=== PATIENT | female | born 1945 | race Caucasian/White ===

== ENCOUNTER 2019-04-12 10:03 | Emergency (ER) | payer MEDICARE, BC ==
[2019-04-12 11:52] LABS: ABSOLUTE BASOPHILS # (AUTO) 0.1 10^3/uL (0.0-0.2); ABSOLUTE EOSINOPHILS # (AUTO) 0.1 10^3/uL (0.0-0.6); ABSOLUTE LYMPHOCYTES (AUTO) 3.2 10^3/uL (0.5-4.7); ABSOLUTE MONOCYTES (AUTO) 0.7 10^3/uL (0.1-1.4); ABSOLUTE NEUT (AUTO) 4.2 10^3/uL (1.7-8.2); BASOPHILS % (AUTO) 1.1 % (0-2); EOSINOPHILS % (AUTO) 0.9 % (0-6); HEMATOCRIT 42.6 % (36.0-47.0); HEMOGLOBIN 13.7 g/dL (12.0-15.5); LYMPHOCYTES % (AUTO) 38.4 % (13-45); MEAN CORPUSCULAR HEMOGLOBIN 25.2 pg (27.0-33.4); MEAN CORPUSCULAR HGB CONC 32.1 g/dL (32.0-36.0); MEAN CORPUSCULAR VOLUME 79 fl (80-97); MONOCYTES % (AUTO) 8.3 % (3-13); PLATELET COUNT 300 10^3/uL (150-450); RED BLOOD COUNT 5.42 10^6/uL (3.72-5.28); RED CELL DISTRIBUTION WIDTH 17.3 % (11.5-14.0); SEGMENTED NEUTROPHILS % (AUTO) 51.3 % (42-78); TOTAL CELLS COUNTED % (AUTO) 100 %; WHITE BLOOD COUNT 8.3 10^3/uL (4.0-10.5)
[2019-04-12 11:53] LABS: APPEARANCE,URINE CLEAR; BILIRUBIN,URINE NEGATIVE (NEGATIVE); COLOR,URINE YELLOW; GLUCOSE, URINE NEGATIVE (NEGATIVE); KETONES,URINE NEGATIVE (NEGATIVE); LEUKOCYTE ESTERASE,URINE NEGATIVE (NEGATIVE); NITRITE,URINE NEGATIVE (NEGATIVE); PROTEIN,URINE NEGATIVE (NEGATIVE); URINE SPECIFIC GRAVITY 1.009; UROBILINOGEN,URINE NEGATIVE mg/dL (<2.0)
[2019-04-12 12:12] LABS: ALBUMIN 4.6 g/dL (3.5-5.0); ALKALINE PHOSPHATASE 79 U/L (38-126); ANION GAP 9 (5-19); ASPARTATE AMINO TRANSFERASE 28 U/L (14-36); BILIRUBIN,DIRECT 0.1 mg/dL (0.0-0.4); BILIRUBIN,TOTAL 0.4 mg/dL (0.2-1.3); BLOOD UREA NITROGEN 12 mg/dL (7-20); CALCIUM 9.6 mg/dL (8.4-10.2); CARBON DIOXIDE 25 mmol/L (22-30); CHLORIDE 105 mmol/L (98-107); GLUCOSE 94 mg/dL (75-110); POTASSIUM 4.4 mmol/L (3.6-5.0); TOTAL PROTEIN 7.9 g/dL (6.3-8.2)
[2019-04-12] MEDS ORDERED: NORMAL SALINE 1000 ML 1,000 ML IV ONE (12:14)
[2019-04-12] MEDS ORDERED: ONDANSETRON HCL INJ/PF 4 MG/2 ML SDV IV ONE (12:14)
--- NOTE | 2019-04-12 12:19 | ER Document Report ---
ED GI/ - General Chief Complaint: Epigastric Pain Stated Complaint: NAUSEA Time Seen by Provider: 04/12/19 12:04 Primary Care Provider: DIXIE FINK MD [ACTIVE STAFF] - Follow up in 3-5 days Notes: Patient is a 73-year-old female who presents the emergency department with a chief complaint of epigastric pain. Patient states that is not really actually pain, but more nausea. She has had nausea and vomiting for the past 2 weeks. The last time she vomited was this morning. She states that it will come and go. Patient also admits to poor appetite. Patient states her last bowel movement was yesterday but states that it was only a small amount. TRAVEL OUTSIDE OF THE [place] IN LAST 30 DAYS: No - Related Data Allergies/Adverse Reactions: No Known Allergies Allergy (Unverified 04/12/19 10:45) Home Medications: EFFEXOR, CARDIA, OMEPRAZOLE, CRESTOR, SPIRIVA, SYMBICORT Past Medical History - Social History Smoking Status: Former Smoker Chew tobacco use (# tins/day): No Frequency of alcohol use: Rare Drug Abuse: None Family History: Reviewed & Not Pertinent Patient has suicidal ideation: No Patient has homicidal ideation: No - Past Medical History Cardiac Medical History: Reports: Hx Hypercholesterolemia, Hx Hypertension Pulmonary Medical History: Reports: Hx COPD GI Medical History: Reports: Hx Gastroesophageal Reflux Disease Past Surgical History: Reports: Hx Abdominal Surgery - low abd @16, hernia, Hx Appendectomy Review of Systems - Review of Systems Notes: REVIEW OF SYSTEMS: CONSTITUTIONAL : Denies recent illness. Denies recent unintentional weight loss. Denies fever, chills, or sweats. EENT: Denies eye, ear, throat, or mouth pain, discharge, or symptoms. Denies nasal or sinus congestion. CARDIOVASCULAR: Denies chest pain. RESPIRATORY: Denies shortness of breath, cough, congestion, difficulty breathing, or wheezing. GASTROINTESTINAL: See HPI. GENITOURINARY: Denies difficulty urinating, burning, blood in urine, urgency or frequency. MUSCULOSKELETAL: Denies neck and back pain. Denies joint pain or swelling. SKIN: Denies rash, itchiness, or lesions HEMATOLOGIC : Denies easy bruising or bleeding. LYMPHATIC: Denies swollen, painful, enlarged glands. NEUROLOGICAL: Denies no numbness or tingling denies weakness. Denies headache. Denies altered mental status. Denies alteration in speech. PSYCHIATRIC: Denies stress, anxiety, alteration in sleep patterns, or depression. All other systems reviewed and negative. Physical Exam - Vital signs Vitals: Temp Pulse Resp BP Pulse Ox 97.9 F 87 20 165/95 H 96 04/12/19 10:17 04/12/19 10:17 04/12/19 10:17 04/12/19 10:17 04/12/19 10:17 - Notes Notes: PHYSICAL EXAMINATION: GENERAL: Appears well, healthy, well-nourished, no acute distress. HEAD: Normocephalic, atraumatic. EYES: PERRL, conjunctiva normal, all extraocular movements intact, sclera nonicteric ENT: Moist mucous membranes. NECK: Supple, no noticeable swelling, redness, rash. Normal range of motion. LUNGS: Equal breath sounds bilaterally and clear to auscultation. No wheezes rales or rhonchi. CARDIOVASCULAR: S1-S2, regular rate, regular rhythm. Radial pulses 2+, normal. ABDOMEN: Normoactive bowel sounds. Soft, tender right middle quadrant and epigastric area, no guarding, no rebound tenderness, and no masses palpated. EXTREMITIES: Normal strength and range of motion, no pitting or edema. No cyanosis. NEUROLOGICAL: Moves all extremities upon command. Strength 5/5 in all extremities. PSYCH: Normal mood, normal affect. SKIN: Warm, dry. No rash, lesions, ulcerations noted. Normal skin turgor. Course - Re-evaluation Re-evalutation: 04/12/19 14: Hematology is unremarkable. Her chemistries are also unremarkable with no elevation in liver enzymes. Troponin was negative. Lipase was slightly elevated, but the patient received IV fluids here in the emergency department. Her urinalysis is unremarkable. CT scan of the abdomen and pelvis shows a large hiatal hernia, as this may be her pain. There are hmangiomas or vascular shunts noted on CT. She also has stonosis noted at her SMA. I spoke with Dr. Michele, my attending, he would like me to speak with Dr. Emerson, who reads the venous Doppler studies, as he has history of vascular surgery. 04/12/19 14:[address] Emerson, he is recommending at this time the patient follow-up with outpatient vascular surgery. He is asking me to call another facility to have a follow-up appointment. 04/12/19 14:[address] Velez, the vascular surgeon over at [facility]. Discussed findings on CT scan. He has advised for the patient to follow-up with his office on Friday between and . I relayed this information on to the patient. Patient will be sent home with Zofran and Carafate to help with symptoms. She is in agreement with this plan. Follow-up precautions were given. Verbal discharge instructions were given to the patient. They verbalized understanding. They are stable for discharge. - Vital Signs Vital signs: Temp Pulse Resp BP Pulse Ox 97.9 F 87 15 162/83 H 95 04/12/19 10:17 04/12/19 10:17 04/12/19 15:00 04/12/19 14:01 04/12/19 15:00 - Laboratory Result Diagrams: 04/12/19 11:24 04/12/19 11:24 Laboratory results interpreted by me: 04/12/19 04/12/19 11:24 11:24 RBC 5.42 H MCV 79 L MCH 25.2 L RDW 17.3 H Est GFR (MDRD) Non-Af 59 L Lipase 349.2 H - EKG Interpretation by Me Additional EKG results interpreted by me: 04/12/19 12:51 Sinus rhythm. Rate 66. FL 168; QRS 70; QT 404; QTc 424. No ST elevations or depressions. No previous EKG to compare. Discharge - Discharge Clinical Impression: Epigastric pain Condition: Stable Disposition: HOME, SELF-CARE Additional Instructions: You were seen today in the emergency department for abdominal pain. Your CT scan shows that you have a hiatal hernia. Please follow-up with the GI doctor below. You also have some calcifications in 1 of your arteries in your abdomen. Please follow-up with the vascular surgeon on Friday between and . If you have worsening symptoms, please return to the emergency department. Dr. Velez V[facility] [address] [place] [id number] Prescriptions: Sucralfate [Carafate 1 gm Tablet] 1 gm PO ACHS #20 tablet Ondansetron [Zofran Odt 4 mg Tablet] 1 - 2 tab PO Q4H PRN #30 tab.rapdis PRN Reason: For Nausea/Vomiting Referrals: DIXIE FINK MD [ACTIVE STAFF] - Follow up in 3-5 days
--- NOTE | 2019-04-12 13:26 | RADIOLOGY REPORT (SQ) ---
EXAM DESCRIPTION: CT ABD/PELVIS WITH IV ONLY; CT CHEST WITH COMPLETED DATE/TIME: 04/12/2019 1:02 pm; 04/12/2019 1:01 pm REASON FOR STUDY: abdominal pain; epigastric pain CONTRAST TYPE AND DOSE: Contrast/concentration: Isovue 350.00 mg/ml; Total Contrast Delivered: 80.0 ml; Total Saline Delivered: 37.8 ml RENAL FUNCTION: Creatinine 0.93 milligrams/deciliter COMPARISON: None. TECHNIQUE: CT scan of the chest performed using helical scanning technique with dynamic intravenous contrast injection. Images reviewed with lung, soft tissue and bone windows. Reconstructed coronal a nd sagittal MPR images reviewed. All images stored on PACS. All CT scanners at this facility use dose modulation, iterative reconstruction, and/or weight based d osing when appropriate to reduce radiation dose to as low as reasonably achievable (ALARA). [facility]: Dose Right [facility]: CareDose [facility]: Dose Right [facility]: Teradose 4D [facility]: GIVVER RADIATION DOSE: CT Rad equipment meets quality standard of care and radiation dose reduction techniq ues were employed. CTDIvol: 4.8 - 4.8 mGy. DLP: 558 mGy-cm.. LIMITATIONS: None. FINDINGS: AXILLAE: No adenopathy. CHEST WALL: No hematoma or subcutaneous emphysema. LUNGS: The trachea and main bronchi are patent. There is severe paraseptal and centrilobular emphyse ma with parenchymal bands in the upper and lower lobes. There is a 5 x 4 mm partially calcified nodu le in the right middle lobe (image 39 of series 4). There is no consolidation, pleural effusion or p neumothorax. PLEURA: No pleural thickening, calcification or fluid. THYROID: No masses or asymmetry. HILAR AND MEDIASTINAL STRUCTURES: There is a large hiatal hernia. AORTA AND GREAT VESSELS: No thoracic aortic aneurysm or dissection. PULMONARY ARTERIES: The pulmonary arteries are normal in caliber. There are no filling defects withi n the main and right and left pulmonary arteries. HEART: No cardiomegaly or pericardial effusion. There is moderate atherosclerotic calcification of t he coronary arteries HARDWARE AND LIFELINES: None. BONES: Dextroconvex curvature of the thoracolumbar spine. There is no acute fracture. OTHER: No other finding. IMPRESSION: 1. No acute cardiopulmonary process. 2. Large hiatal hernia. COMPARISON: None. RADIATION DOSE: CT Rad equipment meets quality standard of care and radiation dose reduction techniq ues were employed. CTDIvol: 4.8 - 4.8 mGy. DLP: 558 mGy-cm.mGy. TECHNIQUE: CT scan of the abdomen and pelvis performed with intravenous and oral contrast using ivette radha scanning technique with dynamic intravenous contrast injection. Images reviewed with lung, soft tissue and bone windows. Reconstructed coronal and sagittal MPR images reviewed. Delayed images for evaluation of the urinary system also acquired and evaluated. All images stored on PACS. All CT scanners at this facility use dose modulation, iterative reconstruction, and/or weight based d osing when appropriate to reduce radiation dose to as low as reasonably achievable (ALARA). [facility]: Dose Right [facility]: [employer]Care [facility]: Dose Right [facility]: Teradose 4D [facility]: GIVVER FINDINGS: LIVER: The liver morphology is non cirrhotic. The nodular foci of hyperenhancement within segment 4A (image 55 of series 3) and segment 8 (image 57 of series 3) are nonspecific and could rep resent flash filling hemangiomas or vascular shunts. The portal veins are patent. SPLEEN: No splenomegaly. PANCREAS: No acute findings. GALLBLADDER: No abnormality that is apparent on CT. ADRENAL GLANDS: Nonspecific nodular thickening of the left adrenal gland that could represent nodular hyperplasia. RIGHT KIDNEY AND URETER: No solid masses, hydronephrosis, nephrolithiasis, hydroureter or ureterolith iasis. LEFT KIDNEY AND URETER: No solid masses, hydronephrosis, nephrolithiasis, hydroureter or ureterolithi asis. AORTA AND VESSELS: Atherosclerotic calcification of the abdominal aorta without aneurysmal dilatation or dissection. There is dense calcified atheromatous plaques at the origin of the SMA that results in a high-grade luminal stenosis; in addition, there is a variant anatomy wherein the common hepatic artery arises from the SMA and the splenic and left gastric arteries arise from the celiac. RETROPERITONEUM: No retroperitoneal adenopathy, hemorrhage or mass. LARGE AND SMALL BOWEL: Colonic diverticulosis without diverticulitis. There is no evidence of obstru ction, bowel wall thickening or pericolonic/ perienteric inflammation. There is no mesenteric adenop athy, free intraperitoneal fluid or mesenteric/peritoneal mass. APPENDIX: Normal. ABDOMINAL WALL: No hernia or masses. PERITONEAL CAVITY: As above. PELVIS: No acute abnormality. BONES: Dextroconvex scoliosis of the thoracolumbar spine and findings of advanced degenerative spondy losis at L4-5 with grade 1 anterolisthesis of the L4 on L5. There is no acute fracture. OTHER: No other finding. IMPRESSION: 1. No acute intra-abdominal abnormality. 2. The nodular foci of hyperenhancement within segment 4A (image 55 of series 3) and segment 8 (imag e 57 of series 3) are nonspecific and could represent flash filling hemangiomas or vascular shunts. 3. 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 In ad dition, there is a variant anatomy wherein the common hepatic artery arises from the SMA and the sple jory and left gastric arteries arise from the celiac. 4. Colonic diverticulosis without diverticulitis. TECHNICAL DOCUMENTATION: JOB ID: [id number] Quality ID # [id number]: Final reports with documentation of one or more dose reduction techniques (e.g., Au tomated exposure control, adjustment of the mA and/or kV according to patient size, use of iterative reconstruction technique) 2010 [employer]- All Rights Reserved Reading location - IP/workstation name: [email or web address]
[2019-04-12 13:36] LABS: TROPONIN I < 0.012 ng/mL
--- NOTE | 2019-04-12 14:39 | EKG REPORT ---
SEVERITY:- NORMAL ECG - SINUS RHYTHM : Confirmed by: Sofia Betancourt MD 12-Apr-2019 14:39:20
[2019-04-12 15:28] VITALS: BP 162/83
== END 2019-04-12 15:28 | disposition home or self-care (01) ==
LOC: ER 10:03
DX: K44.9 Diaphragmatic hernia without obstruction or gangrene (principal); K21.9 Gastro-esophageal reflux disease without esophagitis; K55.1 Chronic vascular disorders of intestine; R11.2 Nausea with vomiting, unspecified; R10.13 Epigastric pain; R63.0 Anorexia; I10 Essential (primary) hypertension; J44.9 Chronic obstructive pulmonary disease, unspecified; Z79.899 Other long term (current) drug therapy; Z79.51 Long term (current) use of inhaled steroids; Z87.891 Personal history of nicotine dependence; Z90.49 Acquired absence of other specified parts of digestive tract; E78.00 Pure hypercholesterolemia, unspecified
CPT/HCPCS: 93005; 36415; 82553; 82550; 83690; 85025; 80053; 81001; 84484; 71260; 74177; 93010; J2405; J7030; 96361; 96374; 99284

== ENCOUNTER 2019-07-15 12:52 | Emergency (ER) | payer MEDICARE, BC ==
[2019-07-15 12:59] VITALS: BP 143/82
--- NOTE | 2019-07-15 13:17 | ER Document Report ---
ED Medical Screen (RME) - General Chief Complaint: Dizziness Stated Complaint: DIZZINESS Time Seen by Provider: 07/15/19 13:02 Notes: Patient is a 74-year-old female with a history of high cholesterol, COPD, hypertension, acid reflux who presents emergency department with a chief complaint of dizziness. Patient reports on July 08 she had an intermittent sharp shooting pain to her scalp area across her her hairline. Patient reports this did not last long. Patient reports since then she has had intermittent dizziness. Patient was seen at an urgent care and given meclizine last week. She reports meclizine is not helping. Patient reports that starting yesterday she began to have constant dizziness that has not resolved with rest and is not exacerbated by any type of movement. Patient reports about 1 month ago she was diagnosed with a blood clot in her artery in her abdomen. Patient reports she did follow-up with vascular surgeon in [place] but has not had any further testing. Patient denies use of blood thinners. Patient denies headache, neck pain, fever. Patient has nausea, vomiting or diarrhea. Patient denies chest pain or shortness of breath. TRAVEL OUTSIDE OF THE [place] IN LAST 30 DAYS: No - Related Data Allergies/Adverse Reactions: No Known Allergies Allergy (Unverified 04/12/19 10:45) Past Medical History - Social History Frequency of alcohol use: Occasional - Past Medical History Cardiac Medical History: Reports: Hx Hypercholesterolemia, Hx Hypertension Pulmonary Medical History: Reports: Hx COPD GI Medical History: Reports: Hx Gastroesophageal Reflux Disease Past Surgical History: Reports: Hx Abdominal Surgery - low abd @16, hernia, Hx Appendectomy Physical Exam - Vital signs Vitals: Temp Pulse Resp BP Pulse Ox 97.8 F 91 16 143/82 H 96 07/15/19 12:59 07/15/19 12:59 07/15/19 12:59 07/15/19 12:59 07/15/19 12:59 - HEENT Head: Normocephalic Eyes: Normal Conjunctiva: Normal Cornea: Normal Pupils: PERRL Course - Re-evaluation Re-evalutation: 07/15/19 13:16 I have greeted and performed a rapid initial assessment of this patient. A comprehensive ED assessment and evaluation of the patient, analysis of test results and completion of the medical decision making process will be conducted by additional ED providers. - Vital Signs Vital signs: Temp Pulse Resp BP Pulse Ox 97.8 F 91 16 143/82 H 96 07/15/19 12:59 07/15/19 12:59 07/15/19 12:59 07/15/19 12:59 07/15/19 12:59
--- NOTE | 2019-07-15 13:47 | RADIOLOGY REPORT (SQ) ---
EXAM DESCRIPTION: CT HEAD WITHOUT COMPLETED DATE/TIME: 07/15/2019 1:30 pm REASON FOR STUDY: dizziness COMPARISON: None. TECHNIQUE: Axial images acquired through the brain without intravenous contrast. Images reviewed wi th bone, brain and subdural windows. Additional sagittal and coronal reconstructions were generated. Images stored on PACS. All CT scanners at this facility use dose modulation, iterative reconstruction, and/or weight based d osing when appropriate to reduce radiation dose to as low as reasonably achievable (ALARA). [facility]: Dose Right [facility]: CareDose [facility]: Dose Right [facility]: Teradose 4D [facility]: [employer] RADIATION DOSE: CT Rad equipment meets quality standard of care and radiation dose reduction techniq ues were employed. CTDIvol: 53.2 mGy. DLP: 964 mGy-cm. mGy. LIMITATIONS: None. FINDINGS: VENTRICLES: Prominent. CEREBRUM: No masses. No hemorrhage. No midline shift. Areas of low density in the white matter mos t likely due to chronic micro-vascular ischemic change. No evidence for acute infarction. CEREBELLUM: No masses. No hemorrhage. No alteration of density. No evidence for acute infarction. EXTRAAXIAL SPACES: Mild age-related involutional change. No fluid collections. No masses. ORBITS AND GLOBE: No intra- or extraconal masses. Normal contour of globe without masses. CALVARIUM: No fracture. PARANASAL SINUSES: No fluid or mucosal thickening. SOFT TISSUES: No mass or hematoma. OTHER: No other significant finding. IMPRESSION: MILD CHRONIC CHANGES OF ATROPHY AND MICROVASCULAR ISCHEMIA. NO ACUTE PROCESS. EVIDENCE OF ACUTE STROKE: NO. TECHNICAL DOCUMENTATION: JOB ID: [id number] Quality ID # 436: Final reports with documentation of one or more dose reduction techniques (e.g., Au tomated exposure control, adjustment of the mA and/or kV according to patient size, use of iterative reconstruction technique) 2010 [employer]- All Rights Reserved Reading location - IP/workstation name: [email or web address]
[2019-07-15 14:12] LABS: ABSOLUTE EOSINOPHILS # (AUTO) 0.2 10^3/uL (0.0-0.6); ABSOLUTE LYMPHOCYTES (AUTO) 3.1 10^3/uL (0.5-4.7); ABSOLUTE MONOCYTES (AUTO) 0.8 10^3/uL (0.1-1.4); ABSOLUTE NEUT (AUTO) 3.2 10^3/uL (1.7-8.2); BASOPHILS % (AUTO) 0.6 % (0-2); EOSINOPHILS % (AUTO) 2.7 % (0-6); HEMATOCRIT 39.4 % (36.0-47.0); LYMPHOCYTES % (AUTO) 42.4 % (13-45); MEAN CORPUSCULAR HEMOGLOBIN 26.4 pg (27.0-33.4); MEAN CORPUSCULAR HGB CONC 33.1 g/dL (32.0-36.0); MEAN CORPUSCULAR VOLUME 80 fl (80-97); MONOCYTES % (AUTO) 10.6 % (3-13); PLATELET COUNT 293 10^3/uL (150-450); RED BLOOD COUNT 4.93 10^6/uL (3.72-5.28); SEGMENTED NEUTROPHILS % (AUTO) 43.7 % (42-78); TOTAL CELLS COUNTED % (AUTO) 100 %; WHITE BLOOD COUNT 7.4 10^3/uL (4.0-10.5)
[2019-07-15 14:15] LABS: APPEARANCE,URINE SLIGHTLY-CLOUDY; BILIRUBIN,URINE NEGATIVE (NEGATIVE); COLOR,URINE YELLOW; GLUCOSE, URINE NEGATIVE (NEGATIVE); KETONES,URINE NEGATIVE (NEGATIVE); LEUKOCYTE ESTERASE,URINE SMALL (NEGATIVE); NITRITE,URINE NEGATIVE (NEGATIVE); PROTEIN,URINE 30 mg/dL (NEGATIVE); URINE SPECIFIC GRAVITY 1.017
[2019-07-15 14:17] LABS: INTERNATIONAL RATION (INR) 0.94; PROTHROMBIN TIME 12.5 SEC (11.4-15.4)
[2019-07-15 14:18] LABS: PARTIAL THROMBOPLASTIN TIME 30.8 SEC (23.5-35.8)
[2019-07-15 14:39] LABS: ALBUMIN 4.2 g/dL (3.5-5.0); ALKALINE PHOSPHATASE 76 U/L (38-126); ANION GAP 6 (5-19); ASPARTATE AMINO TRANSFERASE 30 U/L (14-36); BILIRUBIN,TOTAL 0.3 mg/dL (0.2-1.3); BLOOD UREA NITROGEN 14 mg/dL (7-20); CALCIUM 9.4 mg/dL (8.4-10.2); CARBON DIOXIDE 27 mmol/L (22-30); CHLORIDE 106 mmol/L (98-107); GLUCOSE 78 mg/dL (75-110); TOTAL PROTEIN 6.8 g/dL (6.3-8.2)
--- NOTE | 2019-07-15 23:15 | EKG REPORT ---
SEVERITY:- NORMAL ECG - SINUS RHYTHM : Confirmed by: Boubacar Urrutia MD 15-Jul-2019 23:14:32
== END 2019-07-15 16:30 | disposition left against medical advice (07) ==
LOC: ER 12:52
DX: R42 Dizziness and giddiness (principal); J44.9 Chronic obstructive pulmonary disease, unspecified; I10 Essential (primary) hypertension; Z86.718 Personal history of other venous thrombosis and embolism; Z53.20 Procedure and treatment not carried out because of patient's decision for unspecified reasons
CPT/HCPCS: 36415; 70450; 80053; 81001; 84484; 85025; 85610; 85730; 93005; 93010; 99281

== ENCOUNTER 2019-09-14 15:23 | Emergency (ER) | payer MEDICARE, BC ==
[2019-09-14] MEDS ORDERED: ONDANSETRON HCL INJ/PF 4 MG/2 ML SDV IV ONE (15:37)
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
[2019-09-14] MEDS ORDERED: NORMAL SALINE 500 ML IV ONE (16:11)
[2019-09-14] MEDS ORDERED: FENTANYL CITRATE INJ/PF 100 MCG/2 ML AMPUL IV ONE (16:11)
[2019-09-14 16:14] LABS: ABSOLUTE BASOPHILS # (AUTO) 0.1 10^3/uL (0.0-0.2); ABSOLUTE LYMPHOCYTES (AUTO) 2.3 10^3/uL (0.5-4.7); ABSOLUTE MONOCYTES (AUTO) 0.7 10^3/uL (0.1-1.4); ABSOLUTE NEUT (AUTO) 8.5 10^3/uL (1.7-8.2); BASOPHILS % (AUTO) 0.5 % (0-2); EOSINOPHILS % (AUTO) 0.4 % (0-6); HEMATOCRIT 38.9 % (36.0-47.0); HEMOGLOBIN 12.9 g/dL (12.0-15.5); LYMPHOCYTES % (AUTO) 19.8 % (13-45); MEAN CORPUSCULAR HEMOGLOBIN 26.4 pg (27.0-33.4); MEAN CORPUSCULAR HGB CONC 33.2 g/dL (32.0-36.0); MEAN CORPUSCULAR VOLUME 80 fl (80-97); MONOCYTES % (AUTO) 6.1 % (3-13); PLATELET COUNT 329 10^3/uL (150-450); RED CELL DISTRIBUTION WIDTH 15.9 % (11.5-14.0); SEGMENTED NEUTROPHILS % (AUTO) 73.2 % (42-78); TOTAL CELLS COUNTED % (AUTO) 100 %; WHITE BLOOD COUNT 11.6 10^3/uL (4.0-10.5)
[2019-09-14 16:30] LABS: ALBUMIN 4.5 g/dL (3.5-5.0); ALKALINE PHOSPHATASE 83 U/L (38-126); ANION GAP 7 (5-19); ASPARTATE AMINO TRANSFERASE 35 U/L (14-36); BILIRUBIN,TOTAL 0.5 mg/dL (0.2-1.3); BLOOD UREA NITROGEN 13 mg/dL (7-20); CALCIUM 9.8 mg/dL (8.4-10.2); CARBON DIOXIDE 24 mmol/L (22-30); CHLORIDE 106 mmol/L (98-107); GLUCOSE 145 mg/dL (75-110); POTASSIUM 4.1 mmol/L (3.6-5.0); TOTAL PROTEIN 7.4 g/dL (6.3-8.2)
--- NOTE | 2019-09-14 17:30 | EKG REPORT ---
SEVERITY:- BORDERLINE ECG - SINUS RHYTHM BORDERLINE T ABNORMALITIES, INFERIOR LEADS : Confirmed by: Boubacar Urrutia MD 14-Sep-2019 17:30:21
--- NOTE | 2019-09-14 17:31 | RADIOLOGY REPORT (SQ) ---
EXAM DESCRIPTION: CT ABD/PELVIS WITH IV ONLY IMAGES COMPLETED DATE/TIME: 09/14/2019 5:04 pm REASON FOR STUDY: eval for abdominal and pelvic trauma COMPARISON: 04/12/2019 TECHNIQUE: CT scan of the abdomen and pelvis performed using helical scanning technique with dynamic intravenous contrast injection. No oral contrast. Images reviewed with lung, soft tissue, and bone windows. Reconstructed coronal and sagittal MPR images reviewed. Delayed images for evaluation of the urinary system also acquired. All images stored on PACS. All CT scanners at this facility use dose modulation, iterative reconstruction, and/or weight based d osing when appropriate to reduce radiation dose to as low as reasonably achievable (ALARA). [facility]: Dose Right [facility]: CareDose [facility]: Dose Right [facility]: Teradose 4D [facility]: [employer] CONTRAST TYPE AND DOSE: contrast/concentration: Isovue 350.00 mg/ml; Total Contrast Delivered: 55.0 ml; Total Saline Delivered: 65.0 ml RENAL FUNCTION: Creatinine - 0.9 BUN=13 RADIATION DOSE: CT Rad equipment meets quality standard of care and radiation dose reduction techniq ues were employed. CTDIvol: 6.9 - 7.1 mGy. DLP: 636 mGy-cm.. LIMITATIONS: None. FINDINGS: LOWER CHEST: Stable marked severe centrilobular emphysematous changes in the visualized l ower lungs. LIVER: Normal size. No masses. No dilated ducts. Neck and portal veins are patent. SPLEEN: Normal size. No focal lesions. PANCREAS: No masses. No significant calcifications. No adjacent inflammation or peripancreatic fluid collections. Pancreatic duct not dilated. GALLBLADDER: No identified stones by CT criteria. No inflammatory changes to suggest cholecystitis. ADRENAL GLANDS: No significant masses or asymmetry. RIGHT KIDNEY AND URETER: No solid masses. No significant calcifications. No hydronephrosis or hyd roureter. LEFT KIDNEY AND URETER: No solid masses. No significant calcifications. No hydronephrosis or hydr oureter. AORTA AND VESSELS: Atherosclerotic changes involving the abdominal aorta and branch vessels. As on the previous examination, high-grade stenosis at the origin of the SMA. Variant anatomy with common hepatic artery arising from the SM a in the splenic and left gastric arteries arise from the celiac. No aneurysm. No dissection. RETROPERITONEUM: No retroperitoneal adenopathy, hemorrhage or masses. BOWEL AND PERITONEAL CAVITY: No masses or inflammatory changes. No free fluid or peritoneal masses. APPENDIX: Prior appendectomy. PELVIS: No mass. No free fluid. Normal bladder. ABDOMINAL WALL: No masses. No hernias. BONES: Moderate to moderate severe compression deformity involving the L1 vertebral body represents a new finding since the previous examination. The vertebral body has lost approximately 40---50% of normal height. No evidence of retropulsion into the spinal canal. Scoliosis and degenerative change s involving the lumbar spine. Grade 1 anterolisthesis of L4 on L5 with moderate severe degenerative changes, stable findings. OTHER: Intrathoracic herniation of the stomach, this finding was previously reported. IMPRESSION: 1. Moderate to moderate severe compression deformity involving the L1 vertebral body re presents a new finding since the previous examination dated 04/12/2019. In view of the given history , acute fracture is suggested. 2. No other significant interval changes. COMMENT: 1. The results of this examination were discussed with emergency department provider on at 17:23 hours. TECHNICAL DOCUMENTATION: JOB ID: [id number] Quality ID # [id number]: Final reports with documentation of one or more dose reduction techniques (e.g., Au tomated exposure control, adjustment of the mA and/or kV according to patient size, use of iterative reconstruction technique) 2010 [employer]- All Rights Reserved Reading location - IP/workstation name: [email or web address]
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
[2019-09-14 18:15] LABS: APPEARANCE,URINE CLEAR; BILIRUBIN,URINE NEGATIVE (NEGATIVE); COLOR,URINE STRAW; GLUCOSE, URINE NEGATIVE (NEGATIVE); KETONES,URINE NEGATIVE (NEGATIVE); LEUKOCYTE ESTERASE,URINE NEGATIVE (NEGATIVE); NITRITE,URINE NEGATIVE (NEGATIVE); PROTEIN,URINE NEGATIVE (NEGATIVE); URINE SPECIFIC GRAVITY 1.024; UROBILINOGEN,URINE NEGATIVE mg/dL (<2.0)
[2019-09-14 19:01] VITALS: BP 170/80
== END 2019-09-14 19:01 | disposition home or self-care (01) ==
LOC: ER 15:23
DX: S32.010A Wedge compression fracture of first lumbar vertebra, initial encounter for closed fracture (principal); R10.30 Lower abdominal pain, unspecified; R10.9 Unspecified abdominal pain; V48.6XXA Car passenger injured in noncollision transport accident in traffic accident, initial encounter; I10 Essential (primary) hypertension; J44.9 Chronic obstructive pulmonary disease, unspecified; Z87.891 Personal history of nicotine dependence
CPT/HCPCS: 93005; 99284; 96361; 96374; 96375; 36415; 83690; 85025; 80053; 81001; 74177; 93010; J3010; J2405; J7040